=== PATIENT | female | born 1985 | race Caucasian/White ===

== ENCOUNTER → 2016-12-16 08:06 | Outpatient (CLI) | payer MEDICAID ==
[2016-12-16 09:17] LABS: HCG SERUM NEGATIVE (NEGATIVE)
== END | disposition home or self-care (01) ==
LOC: D.NM 08:00
PROVIDERS: Internal Medicine Geriatric Medicine
DX: E05.00 Thyrotoxicosis with diffuse goiter without thyrotoxic crisis or storm (principal)

== ENCOUNTER 2017-09-15 18:32 | Emergency (ER) | payer MEDICAID ==
[2017-09-15 19:19] LABS: BASOPHILS 0.2 % (0-2); EOSINOPHILS 0.3 % (0-7); HEMATOCRIT 45.1 % (36.0-48.0); HEMOGLOBIN 15.8 g/dL (12-16); IMMATURE GRANULOCYTES 0.3 % (0-5); LYMPHOCYTES 27.3 % (15-50); MCH 30.6 pg (26.0-34.0); MCV 87.4 fL (80.0-100.0); MEAN PLATELET VOLUME 9.5 fL (7.4-10.4); MONOCYTES 5.8 % (2-11); NEUTROPHILS 66.1 % (40-80); PLATELET COUNT 316 10x3/uL (130-400); RBC 5.16 10x6/uL (4.00-5.40); RDW 12.3 % (11.5-14.5); WBC 15.2 10x3/uL (4.8-10.8)
[2017-09-15 19:40] LABS: ALBUMIN 4.1 g/dL (3.4-5.0); ALKALINE PHOSPHATASE 110 U/L (46-116); ALT (SGPT) 26 U/L (10-68); BILIRUBIN - TOTAL 0.27 mg/dL (0.2-1.3); CALC OSMOLALITY 277 mosm/kg (275-300); CALCIUM 9.1 mg/dL (8.5-10.1); CARBON DIOXIDE 27.1 mmol/L (21.0-32.0); CHLORIDE - SERUM 103 mmol/L (98-107); CREATININE - SERUM 0.7 mg/dL (0.6-1.3); GLUCOSE 93 mg/dL (74-106); POTASSIUM - SERUM 4.1 mmol/L (3.5-5.1); PROTEIN - SERUM 7.7 g/dL (6.4-8.2); SODIUM 140 mmol/L (136-145); UREA NITROGEN 11 mg/dL (7-18); eGFR NON AFRICAN AMERICAN > 90 mL/min (90-120)
[2017-09-15 20:22] LABS: THYROID STIMULATING HORMONE 0.01 uIU/mL (0.36-3.74)
== END 2017-09-15 21:40 | disposition home or self-care (01) ==
LOC: D.ER 18:32
PROVIDERS: Family Medicine
DX: Z91.19 Patient's noncompliance with other medical treatment and regimen (principal); G72.9 Myopathy, unspecified; E05.00 Thyrotoxicosis with diffuse goiter without thyrotoxic crisis or storm; F17.200 Nicotine dependence, unspecified, uncomplicated

== ENCOUNTER → 2017-12-17 08:54 | Outpatient (CLI) | payer MEDICAID | END | disposition home or self-care (01) | LOC: D.CT 08:54 | DX: G43.909 Migraine, unspecified, not intractable, without status migrainosus (principal) ==

== ENCOUNTER 2020-04-06 19:17 | Emergency (ER) | payer SELFPAY ==
[~2020-04-06] VITALS: Ht 162.6 cm; Wt 75.5 kg
[2020-04-06 19:35] VITALS: Ht 162.6 cm; Wt 75.5 kg
[2020-04-06] MEDS ORDERED: TYLENOL W/CODEI1 TAB PO (20:15)
[2020-04-06] MEDS ORDERED: IBUPROFEN800 MG PO (20:15)
[2020-04-06] MEDS ORDERED: CLEOCIN HCL300 MG PO (20:15)
[2020-04-06 20:52] VITALS: BP 130/83
== END 2020-04-06 20:52 | disposition home or self-care (01) ==
LOC: D.ER 19:17
DX: K04.7 Periapical abscess without sinus (principal); K08.89 Other specified disorders of teeth and supporting structures; E07.9 Disorder of thyroid, unspecified; G62.9 Polyneuropathy, unspecified; Z72.0 Tobacco use